=== PATIENT | female | born 1945 | race Caucasian/White ===

== ENCOUNTER → 2025-04-17 | Outpatient (CLI) | payer MEDICARE, OTHER, SELFPAY ==
--- NOTE | 2025-04-17 13:15 | XR_ITS ---
Examination: Diagnostic digital mammography, bilateral Computer aided detection 3-D breast Tomosynthesis, bilateral Date and time of exam: April 17, 2025 at 1317 hours INDICATIONS: Mammogram April 15, 2024 6 mm mass upper outer right breast, mammogram June 07, 2024 focal asymmetry upper outer right breast Technique: Nonmagnified MLO, CC views of the breasts to been obtained, reconstructed from 3-D Tomosynthesis images. R2 computer aided detection program utilized for evaluation of suspicious masses and/or abnormal calcifications. 3-D Tomosynthesis images obtained. Findings: Scattered areas of fibroglandular density Scar formation upper outer right breast consistent with patient's history treated right breast cancer Impression: BI-RADS Category 2: Benign findings Recommend yearly follow-up mammography.
== END | disposition home or self-care (01) ==
PROVIDERS: PCP Family Medicine; Referring Provider Family Medicine; Visit Provider Family Medicine
DX: Z12.31 Encounter for screening mammogram for malignant neoplasm of breast (principal); R92.323 Mammographic fibroglandular density, bilateral breasts; Z85.3 Personal history of malignant neoplasm of breast
CPT/HCPCS: 77062; 77066; G0279